=== PATIENT | male | born 1985 | race Caucasian/White ===

== ENCOUNTER 2016-09-26 14:46 | Emergency (ER) | payer MEDICAID, OTHER ==
[~2016-09-26] VITALS: Ht 167.6 cm; Wt 71.5 kg
[2016-09-26 15:08] VITALS: Ht 167.6 cm; Wt 71.5 kg
--- NOTE | 2016-09-26 15:40 | ERD ---
ER Documentation Chief Complaint Date/Time DATE: 09/26/16 TIME: 15:39 Chief Complaint lac to right 5 digit HPI This is a 31-year-old male presenting to the emergency department for laceration of right fifth digit. Patient states he was working on his car when he accidently slipped and cut his finger using a metal blade. Accident occurred about 3 hours prior to arrival. Patient has severe pain to right fifth digit. Denies any loss of sensation. Denies numbness or tingling. ROS All systems reviewed and are negative except as per history of present illness. Medications Home Meds Active Scripts Ibuprofen* (Motrin*) 600 Mg Tab, 600 MG PO Q6, #15 TAB Prov:REMBERTO ROSSI NP 09/26/16 Cephalexin* (Cephalexin*) 500 Mg Capsule, 500 MG PO Q6, #28 CAP Prov:REMBERTO ROSSI NP 09/26/16 Allergies Allergies: Coded Allergies: No Known Allergy (Unverified , 09/26/16) Physical Exam Vitals Vital Signs Date Time Temp Pulse Resp B/P Pulse Ox O2 Delivery O2 Flow Rate FiO2 09/26/16 15:08 98.0 113 18 137/93 96 Physical Exam Const: alert Head: Atraumatic Eyes: Normal Conjunctiva ENT: Normal External Ears, Nose and Mouth. Neck: Full range of motion..~ No meningismus. Resp: Clear to auscultation bilaterally Cardio: Regular rate and rhythm, no murmurs Abd: Soft, non tender, non distended. Normal bowel sounds Skin: No petechiae or rashes Back: No midline or flank tenderness Ext: distal tip of right 5th digit, open laceration with possible bone fragment. no active bleeding. sensation fully intact. Neur: Awake and alert Psych: Normal Mood and Affect Results 24 hrs Current Medications Medications (Trade) Dose Ordered Sig/Lukasz Route PRN Reason Start Time Stop Time Status Last Admin Dose Admin Lidocaine (Xylocaine 1% (Mdv) 20 ml) 20 ml ONCE ONCE SC 09/26/16 16:00 09/26/16 16:01 DC Cefazolin Sodium (Ancef) 2 gm ONCE ONCE IM 09/26/16 17:30 09/26/16 17:31 DC 09/26/16 17:40 Diphtheria/ Tetanus/Acell Pertussis (Adacel) 0.5 ml ONCE ONCE IM* 09/26/16 18:30 09/26/16 18:31 Procedures/MDM ED COURSE: The patient was stable throughout ED course. I kept the patient and/or family informed of laboratory and diagnostic imaging results throughout the ED course. Imaging X-ray right fifth digit Patient: GEM PINEDA : 1985 Age: 31 Sex: M MR #: [id number] DOS: 09/26/16 1553 Ordering MD: REMBERTO ROSSI NP Location: [facility] Room/Bed: PROCEDURE: XR Finger. CLINICAL INDICATION: Laceration TECHNIQUE: 3 views of the right fifth finger are available for review. COMPARISON: None available FINDINGS: There is partial amputation of the tuft of the fifth distal phalanx with overlying soft tissue defect. There is a small cortical fragment displaced distally. The remaining osseous structures are intact. No radiopaque foreign body is seen. IMPRESSION: 1. Partial amputation of the tuft of the fifth distal phalanx with overlying soft tissue defect. MDM: 31-year-old male presents emergency department for laceration to right fifth digit after injury today. Patient states he was working on his car. X- ray right fifth digit reviewed by radiologist as partial amputation of the tuft of the fifth distal phalanx with overlying soft tissue defect. Discussed findings with Dr. Maciel. Laceration repair as described below. Finger splint placed and patient remains neurovascularly intact. Able to move all fingers on right hand. Remains hemodynamically stable. No fevers or chills. Patient given Ancef 2 g IM for prophylaxis. Tdap administered. Laceration Repair by me: Anesthesia: 1% lidocaine locally Location: Right fifth digit Tendon/Joint/Nerves: No injury Foreign body: None detected after copious irrigation and exploration Technique: 4 Simple Interrupted Sutures, 3 sutures through proximal nail bed Complexity: No subcutaneous sutures/mucosal repair/ edge excision Post Closure Length: 1.5 cm Patient's bleeding was easily controlled in the department and there is no indication of anemia. No evidence of compartment syndrome, neurologic injury, vascular injury, open joint, tendon laceration, or foreign body. Patient is appropriate for outpatient follow up. 48 hour wound check. Scar minimization instructions given. Departure Diagnosis: Primary Impression: Laceration Condition: Stable REMBERTO ROSSI NP Sep 26, 2016 15:40
[2016-09-26] MEDS ORDERED: LIDOCAINE 1% (MDV) 20 ML INJ SC ONE (16:00)
--- NOTE | 2016-09-26 16:35 | RADRPT ---
PROCEDURE: XR Finger. CLINICAL INDICATION: Laceration TECHNIQUE: 3 views of the right fifth finger are available for review. COMPARISON: None available FINDINGS: There is partial amputation of the tuft of the fifth distal phalanx with overlying soft tissue defec t. There is a small cortical fragment displaced distally. The remaining osseous structures are intac t. No radiopaque foreign body is seen. IMPRESSION: 1. Partial amputation of the tuft of the fifth distal phalanx with overlying soft tissue defect. RPTAT: PP .Kamar Ortega MD, MD Date Time Electronically viewed and signed by .Kamar Ortega MD, on 09/26/2016 16:34 .d/
[2016-09-26] MEDS ORDERED: CEFAZOLIN 1 GM INJ IM ONE (17:30)
[2016-09-26] MEDS ORDERED: CEPH500C PO (18:13)
[2016-09-26] MEDS ORDERED: IBUP-1542 PO (18:13)
[2016-09-26] MEDS ORDERED: DIPHTH/TET/ACEL PERTUSS (ADULT) 0.5 ML VIAL IM* ONE (18:30)
[2016-09-26 18:40] VITALS: BP 128/80; PULSE 78; RESP 18; TEMP 98
== END 2016-09-26 19:18 | disposition home or self-care (01) ==
LOC: FTE 14:46
DX: S61.216A Laceration without foreign body of right little finger without damage to nail, initial encounter (principal); W26.8XXA Contact with other sharp object(s), not elsewhere classified, initial encounter; Y92.9 Unspecified place or not applicable; Z23 Encounter for immunization
CPT/HCPCS: 12001; 73140; 90715; J0690; Z7610; 90471; 96372